=== PATIENT | female | born 1955 | race Caucasian/White ===

== ENCOUNTER 2019-06-08 16:55 | Inpatient (IN) | payer OTHER, BC ==
--- OUTSIDE RECORDS SUMMARY | 2019-06-08 16:58 | XMS REPORT ---
:1955 Author Organization eClinicalWorks Care Team Providers Name Role Phone Marcela Deng Provider Role Unavailable Allergies No Known Allergies Problems Problem Type Condition Code Onset Dates Condition Status Problem KEVAN (obstructive sleep apnea) G47.33 Active Problem Acquired hypothyroidism E03.9 Active Problem Elevated glucose level R73.09 Active Assessment Acquired hypothyroidism E03.9 Active Problem Essential hypertension I10 Active Medications Medication Code Code Instructions Start End Status Dosage System Date Date Levothyroxine [facility] 95621211453 100 MCG Orally Active 1 tablet Sodium Once a day on an empty stomach in the morning Results No Known Results Summary Purpose eClinicalWorks Submission
--- OUTSIDE RECORDS SUMMARY | 2019-06-08 16:58 | XMS REPORT ---
:1955 Author Organization [employer] Care Team Providers Name Role Phone Marcela Deng Provider Role Unavailable Allergies No Known Allergies Problems Problem Type Condition Code Onset Dates Condition Status Problem KEVAN (obstructive sleep apnea) G47.33 Active Problem Acquired hypothyroidism E03.9 Active Problem Elevated glucose level R73.09 Active Assessment Essential hypertension I10 Active Problem Essential hypertension I10 Active Medications Medication Code System Code Instructions Start Date End Date Status Dosage Lisinopril [facility] 61021509679 10 MG Orally Once Active 1 tablet a day Results No Known Results Summary Purpose eClinicalWorks Submission
--- OUTSIDE RECORDS SUMMARY | 2019-06-08 16:58 | XMS REPORT ---
:1955 Author Organization [employer]Works Care Team Providers Name Role Phone Marcela Deng Provider Role Unavailable Allergies, Adverse Reactions, Alerts Substance Reaction Event Type N.K.D.A. Info Not Available Non Drug Allergy Problems Problem Type Condition Code Onset Dates Condition Status Problem Acquired hypothyroidism E03.9 Active Problem Essential hypertension I10 Active Problem KEVAN (obstructive sleep apnea) G47.33 Active Assessment Essential hypertension I10 Active Assessment Encounter for immunization Z23 Active Assessment Acquired hypothyroidism E03.9 Active Medications Medication Code Code Instructions Start End Status Dosage System Date Date Levothyroxine [facility] 13337838446 100 MCG Orally Active 1 tablet Sodium Once a day on an empty stomach in the morning Lisinopril [facility] [id number] 10 MG Orally Active 1 tablet Once a day Results No Known Results Immunizations Vaccine Administration Date Prevnar 13 -Pneumonia Vaccine Aug 19, 2018 Summary Purpose eClinicalWorks Submission
--- OUTSIDE RECORDS SUMMARY | 2019-06-08 16:58 | XMS REPORT ---
:1955 Author Organization eClinicalWorks Care Team Providers Name Role Phone Marcela Deng Provider Role Unavailable Allergies No Known Allergies Problems Problem Type Condition Code Onset Dates Condition Status Problem KEVAN (obstructive sleep apnea) G47.33 Active Problem Acquired hypothyroidism E03.9 Active Problem Elevated glucose level R73.09 Active Assessment Elevated glucose level R73.09 Active Problem Essential hypertension I10 Active Medications No Known Medications Results No Known Results Summary Purpose eClinicalWorks Submission
--- OUTSIDE RECORDS SUMMARY | 2019-06-08 16:59 | XMS REPORT ---
:1955 Author Organization eClinicalWorks Care Team Providers Name Role Phone Marcela Deng Provider Role Unavailable Allergies No Known Allergies Problems Problem Type Condition Code Onset Dates Condition Status Problem KEVAN (obstructive sleep apnea) G47.33 Active Problem Acquired hypothyroidism E03.9 Active Problem Elevated glucose level R73.09 Active Assessment Acquired hypothyroidism E03.9 Active Assessment Elevated glucose level R73.09 Active Problem Essential hypertension I10 Active Medications No Known Medications Results No Known Results Summary Purpose eClinicalWorks Submission
--- OUTSIDE RECORDS SUMMARY | 2019-06-08 16:59 | XMS REPORT ---
:1955 Author Organization eClinicalWorks Care Team Providers Name Role Phone Marcela Deng Provider Role Unavailable Allergies No Known Allergies Problems Problem Type Condition Code Onset Dates Condition Status Problem KEVAN (obstructive sleep apnea) G47.33 Active Problem Acquired hypothyroidism E03.9 Active Problem Elevated glucose level R73.09 Active Problem Essential hypertension I10 Active Medications Medication Code Code Instructions Start End Status Dosage System Date Date Levothyroxine [facility] [id number] 100 MCG Orally Active 1 tablet Sodium Once a day on an empty stomach in the morning Results No Known Results Summary Purpose eClinicalWorks Submission
[2019-06-08 17:16] VITALS: BMI 36.0
[2019-06-08] MEDS: METFORMIN ER 500 MG TAB PO SCH (17:45)
[2019-06-08 18:27] LABS: Absolute Lymphocytes (CBC) 1.7 K/uL (0.7-4.9); Basophils % 0.3 % (0-1.3); Hematocrit 42.3 % (36.0-45.0); Lymphocytes % 15.4 % (15.3-44.8); MPV 8.3 fL (7.6-11.3); RBC Red Blood Cell Count 5.12 M/uL (3.86-4.86)
[2019-06-08 18:37] LABS: Bilirubin Total 0.5 mg/dL (0.2-1.0); Potassium 3.7 mmol/L (3.5-5.1); Protein, Total 7.7 g/dL (6.4-8.2)
--- NOTE | 2019-06-08 18:39 | P.HP ---
Certification for Inpatient Patient admitted to: Inpatient With expected LOS: >2 Midnights Patient will require the following post-hospital care: Home Health Services Practitioner: I am a practitioner with admitting privileges, knowledge of patient current condition, hospital course, and medical plan of care. Services: Services provided to patient in accordance with Admission requirements found in Title 42 Section 412.3 of the Code of Federal Regulations Patient History Date of Service: 06/08/19 Primary Care Provider: Shonda Deng Reason for admission: infection of the left hand History of Present Illness: Patient of Shonda Deng. Came to the office today. She had a spider bite on the left 5th proximal phalange. She went to urgent care and was started on doxycyline. Unfortunately the patient swelling and reddness worsened despite antibiotics. She had taken a picture from yesterday. Which proved that she had obviously worsened despite being on antibiotics. Due to this we decided to hospitalize the patient. Start on iv fluids an antibiotics. Have discussed with Dr. Pacheco, who will take her to OR tomorrow for debridgement and flushing of the site. Allergies No Known Allergies Allergy (Verified 06/08/19 17:15) - Past Medical/Surgical History Has patient received pneumonia vaccine in the past: Yes Diabetic: Yes -: diabetes -: htn -: hypothyroid -: sleep apnea -: facial surgery 1979 -: tubal 1979 -: breast reduction 2005 -: abdominal plasty 2005 - Social History Smoking Status: Never smoker Alcohol use: Yes CD- Drugs: No Caffeine use: Yes Place of Residence: Home Review of Systems 10-point ROS is otherwise unremarkable Musculoskeletal: Hand Pain (erthema and pain of the left 5th proximal phalange) Physical Examination - Vital Signs Temperature: 98.3 F Blood Pressure: 141/62 Pulse: 104 Respirations: 18 Pulse Ox (%): 95 - Physical Exam General: Alert, In no apparent distress HEENT: Atraumatic, PERRLA, Mucous membr. moist/pink, EOMI, Sclerae nonicteric Neck: Supple, 2+ carotid pulse no bruit, No LAD, Without JVD or thyroid abnormality Respiratory: Clear to auscultation bilaterally, Normal air movement Cardiovascular: Regular rate/rhythm, Normal S1 S2 Gastrointestinal: Normal bowel sounds, No tenderness Musculoskeletal: No tenderness Integumentary: No rashes, Tenderness/swelling, Erythema, Other (spider bite.2cmx 2cm with ulceration reddness and swelling. ) Neurological: Normal gait, Normal speech, Normal strength at 5/5 x4 extr, Normal tone, Normal affect Lymphatics: No axilla or inguinal lymphadenopathy - Studies Laboratory Data (last 24 hrs) 06/08/19 18:03: WBC 11.2 H, Hgb 13.9, Hct 42.3, Plt Count 265 Assessment and Plan - Problems (Diagnosis) (1) Finger infection Current Visit: Yes Status: Acute Plan: Will admit for iv antibiotics and surgical decompression. Order cultures. Start vanc and levaquin. Will consult Dr. Pacheco. Keep NPO after midnight. (2) Diabetes 1.5, managed as type 2 Current Visit: Yes Status: Acute Plan: will put her on accuchecks and sliding scales Discharge Plan: Home Plan to discharge in: 48 Hours - Advance Directives Does patient have a Living Will: Yes Does patient have a Durable POA for Healthcare: Yes - Code Status/Comfort Care Code Status Assessed: Yes Code Status: Full Code Physician Review: Patient Assessed, Agree with Above Assessment and Plan Critical Care: No Time Spent Managing Pts Care (In Minutes): 70
[2019-06-08] MEDS ORDERED: D50W 25 GM/50 ML SYRINGE IV PRN (18:42)
[2019-06-08] MEDS: NA CHLORIDE 0.9% 1,000 ML IV SCH (18:42)
[2019-06-08] MEDS ORDERED: GLUCAGON 1 MG/VIAL IM PRN (18:42)
[2019-06-08] MEDS: VANCOMYCIN 2 GM in NA CHLORIDE 0.9% 500 ML IV SCH (18:42)
[2019-06-08] MEDS: ENOXAPARIN 40 MG/0.4 ML SQ SCH (20:35)
[2019-06-08] MEDS: Levofloxacin 750mg IV 750 MG/150 ML BAG IV SCH (20:35)
[2019-06-08] MEDS: INSULIN -REGULAR HUMAN 50 UNIT/0.5 ML ML SQ SCH (20:36)
[2019-06-09] MEDS: VANCOMYCIN 2 GM in NA CHLORIDE 0.9% 500 ML IV SCH (05:07)
[2019-06-09] MEDS: LEVOTHYROXINE SOD 0.1 MG TAB PO SCH (05:08)
[2019-06-09 06:07] LABS: Urine Appearance CLEAR; Urine Bilirubin NEGATIVE (NEG); Urine Blood NEGATIVE (NEG); Urine Color YELLOW; Urine Glucose NEGATIVE (NEG); Urine Protein NEGATIVE (NEG); Urine Specific Gravity >=1.030 (1.005-1.030); Urine Urobilinogen 0.2 mg/dL (0.2-1.0)
[2019-06-09 06:08] LABS: Urine Microscopic Reflex NO UMIC
[2019-06-09 07:02] LABS: Absolute Lymphocytes (CBC) 1.7 K/uL (0.7-4.9); Basophils % 0.4 % (0-1.3); Hematocrit 39.7 % (36.0-45.0); Lymphocytes % 23.6 % (15.3-44.8); RBC Red Blood Cell Count 4.82 M/uL (3.86-4.86)
[2019-06-09] MEDS: NA CHLORIDE 0.9% 1,000 ML IV SCH (07:20)
[2019-06-09 07:23] LABS: Albumin 3.6 g/dL (3.4-5.0); Bilirubin Total 0.8 mg/dL (0.2-1.0); Potassium 3.8 mmol/L (3.5-5.1); Protein, Total 7.2 g/dL (6.4-8.2); Thyroid Stimulating Hormone 1.62 uIU/mL (0.360-3.740)
[2019-06-09] MEDS: PANTOPRAZOLE 40MG TABLET PO SCH (07:30)
[2019-06-09] MEDS ORDERED: PANTOPRAZOLE 40MG TABLET PO SCH (07:30)
[2019-06-09] MEDS: INSULIN -REGULAR HUMAN 50 UNIT/0.5 ML ML SQ SCH ×4 (07:30→21:00)
[2019-06-09] MEDS: LISINOPRIL 10 MG TAB PO SCH (08:09)
[2019-06-09] MEDS ORDERED: PROPOFOL 200 MG/20 ML VIAL IV ONE (08:47)
[2019-06-09] MEDS ORDERED: FENTANYL CITR 100 MCG/2 ML ONE (08:48)
[2019-06-09] MEDS ORDERED: MIDAZOLAM HCL 2 MG/2 ML INJ ONE (08:48)
[2019-06-09] MEDS ORDERED: LIDOCAINE 2% MPF 5 ML VIAL ONE (08:49)
[2019-06-09] MEDS: NA CHLORIDE 0.9% 1,000 ML ONE (08:53)
[2019-06-09] MEDS: MEPERIDINE HCL 25 MG/0.5 ML ONE ×2 (10:11→10:16)
--- NOTE | 2019-06-09 10:12 | OP ---
Surgeon: Holger Pacheco MD Preoperative Diagnosis: Infection of the left little finger. Postoperative Diagnosis: Infection of the left little finger. Procedure Performed: Excision of skin, subcutaneous tissue, approximately 1.5 x 0.5 cm. I and D abs cess. Anesthesia: General. Procedure In Detail: After satisfactory induction of general anesthesia, left arm was prepped with B etadine scrub, Betadine paint, dry sterile drapes applied in usual manner. Tourniquet was inflated t o 250 mmHg. Hand placed on a [place] table. Elliptical incision outlined over the dorsum of the lef t little finger slightly distal to the crease and extended proximally and distally. A sca lpel was used to incise the skin. Tissue was sent to Pathology. The proximal and distal flaps were elevated. The pus was excised, looks like MRSA, thick creamy white yellow pus. Culture was taken. A fter curetting and jet lavaged, tourniquet released. Electrocautery used for hemostasis. Wound pack ed with Betadine soaked 1/4-inch Nu Gauze and 2 inch Shay. The patient tolerated the procedure well and returned to Recovery. LEIDY/TANNER Voice ID: [id number] Report ID: [id number]
--- NOTE | 2019-06-09 11:38 | P.PN ---
Subjective Date of Service: 06/09/19 Primary Care Provider: Shonda Deng Chief Complaint: infection of the left hand Subjective: Improving (seen in pre op. Pt in good spirits) Review of Systems 10-point ROS is otherwise unremarkable Physical Examination - Vital Signs Temperature: 97.4 F Blood Pressure: 115/54 Pulse: 70 Respirations: 16 Pulse Ox (%): 96 - Physical Exam General: Alert, In no apparent distress HEENT: Atraumatic, PERRLA, EOMI Neck: Supple, JVD not distended Respiratory: Clear to auscultation bilaterally, Normal air movement Cardiovascular: Regular rate/rhythm, Normal S1 S2 Gastrointestinal: Normal bowel sounds, No tenderness Musculoskeletal: No tenderness Integumentary: No rashes Neurological: Normal speech, Normal tone, Normal affect Lymphatics: No axilla or inguinal lymphadenopathy - Studies Laboratory Data (last 24 hrs) 06/09/19 06:38: Sodium 144, Potassium 3.8, BUN 15, Creatinine 0.80, Glucose 119 H, Total Bilirubin 0.8, AST 11 L, ALT 22, Alkaline Phosphatase 104 06/09/19 06:38: WBC 7.4 D, Hgb 13.2, Hct 39.7, Plt Count 250 06/08/19 18:03: Sodium 145, Potassium 3.7, BUN 18, Creatinine 0.80, Glucose 111 H, Total Bilirubin 0.5, AST 11 L, ALT 21, Alkaline Phosphatase 120 H 06/08/19 18:03: WBC 11.2 H, Hgb 13.9, Hct 42.3, Plt Count 265 Assessment & Plan - Problems (Diagnosis) (1) Finger infection Current Visit: Yes Status: Acute Plan: Will admit for iv antibiotics and surgical decompression. Order cultures. Start vanc and levaquin. Will consult Dr. Pacheco. Keep NPO after midnight. (2) Diabetes 1.5, managed as type 2 Current Visit: Yes Status: Acute Plan: will put her on accuchecks and sliding scales (3) HTN (hypertension) Current Visit: Yes Status: Acute Plan: stable continue lisinopril Qualifiers: Hypertension type: essential hypertension Qualified Code(s): I10 - Essential (primary) hypertension (4) Hypothyroidism Current Visit: Yes Status: Acute Plan: stable continue levothyroxine. check tsh Qualifiers: Hypothyroidism type: acquired Qualified Code(s): E03.9 - Hypothyroidism, unspecified Discharge Plan: Home - Code Status/Comfort Care Code Status Assessed: No Physician Review: Patient Assessed, Agree with Above Assessment and Plan Critical Care: No Time Spent Managing Pts Care (In Minutes): 20
[2019-06-09] MEDS: ENOXAPARIN 40 MG/0.4 ML SQ SCH (17:51)
[2019-06-09] MEDS: METFORMIN ER 500 MG TAB PO SCH (17:51)
[2019-06-09] MEDS: Levofloxacin 750mg IV 750 MG/150 ML BAG IV SCH (17:52)
[2019-06-10] MEDS ORDERED: VANCOMYCIN 2 GM in NA CHLORIDE 0.9% 500 ML IV SCH ×2
[2019-06-10] MEDS: CODEINE 30MG/APAP 300MG TAB PO PRN ×4 (00:26→23:05)
[2019-06-10] MEDS: NA CHLORIDE 0.9% 1,000 ML IV SCH ×3 (00:28→23:20)
[2019-06-10 06:32] LABS: Absolute Lymphocytes (CBC) 2.1 K/uL (0.7-4.9); Basophils % 0.4 % (0-1.3); Hematocrit 36.8 % (36.0-45.0); Lymphocytes % 30.4 % (15.3-44.8); MPV 7.9 fL (7.6-11.3); RBC Red Blood Cell Count 4.44 M/uL (3.86-4.86)
[2019-06-10 06:46] LABS: Albumin 3.3 g/dL (3.4-5.0); Bilirubin Total 0.6 mg/dL (0.2-1.0); Potassium 3.9 mmol/L (3.5-5.1); Protein, Total 6.6 g/dL (6.4-8.2)
[2019-06-10] MEDS: LEVOTHYROXINE SOD 0.1 MG TAB PO SCH (06:55)
[2019-06-10] MEDS ORDERED: ALPRAZOLAM 1 MG TABLET PO ONE (07:13)
[2019-06-10] MEDS: INSULIN -REGULAR HUMAN 50 UNIT/0.5 ML ML SQ SCH ×4 (07:30→21:00)
[2019-06-10] MEDS: LISINOPRIL 10 MG TAB PO SCH (08:45)
[2019-06-10] MEDS: PANTOPRAZOLE 40MG TABLET PO SCH (08:45)
[2019-06-10] MEDS ORDERED: HYDRALAZINE HCL 20 MG/ML VIAL IV PRN (10:12)
[2019-06-10] MEDS: ACETAMINOPHEN 325 MG TABLET PO SCH (16:00)
[2019-06-10] MEDS: ENOXAPARIN 40 MG/0.4 ML SQ SCH (16:34)
[2019-06-10] MEDS: Levofloxacin 750mg IV 750 MG/150 ML BAG IV SCH (16:35)
[2019-06-10] MEDS: METFORMIN ER 500 MG TAB PO SCH (16:35)
[2019-06-10] MEDS: VANCOMYCIN 2.25 GM in NA CHLORIDE 0.9% 500 ML IV SCH (19:59)
[2019-06-11] MEDS: LEVOTHYROXINE SOD 0.1 MG TAB PO SCH (06:05)
[2019-06-11 06:18] LABS: Absolute Lymphocytes (CBC) 1.9 K/uL (0.7-4.9); Basophils % 0.6 % (0-1.3); Hematocrit 39.1 % (36.0-45.0); Lymphocytes % 26.9 % (15.3-44.8); MPV 7.7 fL (7.6-11.3); RBC Red Blood Cell Count 4.73 M/uL (3.86-4.86)
[2019-06-11 06:30] LABS: Albumin 3.6 g/dL (3.4-5.0); Bilirubin Total 0.7 mg/dL (0.2-1.0); Protein, Total 7.2 g/dL (6.4-8.2)
[2019-06-11] MEDS: INSULIN -REGULAR HUMAN 50 UNIT/0.5 ML ML SQ SCH ×4 (07:30→21:00)
[2019-06-11] MEDS: PANTOPRAZOLE 40MG TABLET PO SCH (08:11)
[2019-06-11] MEDS: LISINOPRIL 20 MG TAB PO SCH (08:11)
[2019-06-11] MEDS: ACETAMINOPHEN 325 MG TABLET PO SCH ×3 (08:14→16:00)
--- NOTE | 2019-06-11 11:16 | P.PN ---
Subjective Date of Service: 06/10/19 Primary Care Provider: Shonda Deng Chief Complaint: infection of the left hand Review of Systems 10-point ROS is otherwise unremarkable Physical Examination - Vital Signs Temperature: 97 F Blood Pressure: 148/62 Pulse: 68 Respirations: 20 Pulse Ox (%): 97 - Physical Exam General: Alert, In no apparent distress HEENT: Atraumatic, PERRLA, EOMI Neck: Supple, JVD not distended Respiratory: Clear to auscultation bilaterally, Normal air movement Cardiovascular: Regular rate/rhythm, Normal S1 S2 Gastrointestinal: Normal bowel sounds, No tenderness Musculoskeletal: No tenderness Integumentary: No rashes Neurological: Normal speech, Normal tone, Normal affect Lymphatics: No axilla or inguinal lymphadenopathy - Studies Laboratory Data (last 24 hrs) 06/11/19 06:04: Sodium 142, Potassium 4.0, BUN 12, Creatinine 0.86, Glucose 116 H, Total Bilirubin 0.7, AST 15, ALT 21, Alkaline Phosphatase 108 06/11/19 06:04: WBC 6.9, Hgb 12.8, Hct 39.1, Plt Count 259 Microbiology Data (last 24 hrs): 06/09/19 09:22 Wound - Left Finger Gram Stain - Final 06/09/19 09:22 Wound - Left Finger Culture & Sensitivity - Final Staph Aureus Assessment & Plan - Problems (Diagnosis) (1) Finger infection Current Visit: Yes Status: Acute Plan: post op. Will continue vanc. Gm +ve coagulase postive cocci. Will await antibiotigram. scheduled dosages of antibiotics. (2) Diabetes 1.5, managed as type 2 Current Visit: Yes Status: Acute Plan: will put her on accuchecks and sliding scales (3) HTN (hypertension) Current Visit: Yes Status: Acute Plan: stable continue lisinopril Qualifiers: Hypertension type: essential hypertension Qualified Code(s): I10 - Essential (primary) hypertension (4) Hypothyroidism Current Visit: Yes Status: Acute Plan: stable continue levothyroxine. check tsh Qualifiers: Hypothyroidism type: acquired Qualified Code(s): E03.9 - Hypothyroidism, unspecified Discharge Plan: Home Plan to discharge in: 48 Hours - Code Status/Comfort Care Code Status Assessed: No Physician Review: Patient Assessed, Agree with Above Assessment and Plan Critical Care: No Time Spent Managing Pts Care (In Minutes): 20
--- NOTE | 2019-06-11 11:18 | P.PN ---
Subjective Date of Service: 06/11/19 Primary Care Provider: Shonda Deng Chief Complaint: infection of the left hand Subjective: No new changes Review of Systems 10-point ROS is otherwise unremarkable Physical Examination - Vital Signs Temperature: 97 F Blood Pressure: 148/62 Pulse: 68 Respirations: 20 Pulse Ox (%): 97 - Physical Exam General: Alert, In no apparent distress HEENT: Atraumatic, PERRLA, EOMI Neck: Supple, JVD not distended Respiratory: Clear to auscultation bilaterally, Normal air movement Cardiovascular: Regular rate/rhythm, Normal S1 S2 Gastrointestinal: Normal bowel sounds, No tenderness Musculoskeletal: No tenderness Integumentary: No rashes Neurological: Normal speech, Normal tone, Normal affect Lymphatics: No axilla or inguinal lymphadenopathy - Studies Laboratory Data (last 24 hrs) 06/11/19 06:04: Sodium 142, Potassium 4.0, BUN 12, Creatinine 0.86, Glucose 116 H, Total Bilirubin 0.7, AST 15, ALT 21, Alkaline Phosphatase 108 06/11/19 06:04: WBC 6.9, Hgb 12.8, Hct 39.1, Plt Count 259 Microbiology Data (last 24 hrs): 06/09/19 09:22 Wound - Left Finger Gram Stain - Final 06/09/19 09:22 Wound - Left Finger Culture & Sensitivity - Final Staph Aureus Assessment & Plan - Problems (Diagnosis) (1) Finger infection Current Visit: Yes Status: Acute Plan: post op. Will continue vanc. Gm +ve coagulase postive cocci. Will await antibiotigram. scheduled dosages of tylenol to control pain and anxiety (2) Diabetes 1.5, managed as type 2 Current Visit: Yes Status: Acute Plan: will put her on accuchecks and sliding scales (3) HTN (hypertension) Current Visit: Yes Status: Acute Plan: stable continue lisinopril Qualifiers: Hypertension type: essential hypertension Qualified Code(s): I10 - Essential (primary) hypertension (4) Hypothyroidism Current Visit: Yes Status: Acute Plan: stable continue levothyroxine. check tsh Qualifiers: Hypothyroidism type: acquired Qualified Code(s): E03.9 - Hypothyroidism, unspecified Discharge Plan: Home Plan to discharge in: 48 Hours - Code Status/Comfort Care Code Status Assessed: No Physician Review: Patient Assessed, Agree with Above Assessment and Plan Critical Care: No Time Spent Managing Pts Care (In Minutes): 20
[2019-06-11] MEDS: VANCOMYCIN 2.25 GM in NA CHLORIDE 0.9% 500 ML IV SCH (12:32)
[2019-06-11] MEDS ORDERED: NA CHLORIDE 0.9% 250 ML ONE (12:53)
[2019-06-11] MEDS: METFORMIN ER 500 MG TAB PO SCH (16:54)
[2019-06-11] MEDS: ENOXAPARIN 40 MG/0.4 ML SQ SCH (16:54)
[2019-06-11] MEDS: Levofloxacin 750mg IV 750 MG/150 ML BAG IV SCH (18:41)
[2019-06-12] MEDS: VANCOMYCIN 2.25 GM in NA CHLORIDE 0.9% 500 ML IV SCH (06:10)
[2019-06-12] MEDS: LEVOTHYROXINE SOD 0.1 MG TAB PO SCH (06:11)
[2019-06-12] MEDS: INSULIN -REGULAR HUMAN 50 UNIT/0.5 ML ML SQ SCH ×4 (07:30→21:00)
[2019-06-12] MEDS: PANTOPRAZOLE 40MG TABLET PO SCH (09:03)
[2019-06-12] MEDS: LISINOPRIL 20 MG TAB PO SCH (09:04)
[2019-06-12] MEDS: ACETAMINOPHEN 325 MG TABLET PO SCH ×3 (09:04→17:01)
--- NOTE | 2019-06-12 09:17 | P.PN ---
Subjective Date of Service: 06/12/19 Primary Care Provider: Shonda Deng Chief Complaint: infection of the left hand Subjective: No new changes Review of Systems 10-point ROS is otherwise unremarkable Physical Examination - Vital Signs Temperature: 97.4 F Blood Pressure: 137/63 Pulse: 64 Respirations: 16 Pulse Ox (%): 99 - Physical Exam General: Alert, In no apparent distress HEENT: Atraumatic, PERRLA, EOMI Neck: Supple, JVD not distended Respiratory: Clear to auscultation bilaterally, Normal air movement Cardiovascular: Regular rate/rhythm, Normal S1 S2 Gastrointestinal: Normal bowel sounds, No tenderness Musculoskeletal: No tenderness Integumentary: No rashes, Other (left hand is bandaged. Pt took pictures which show decreased ) Neurological: Normal speech, Normal tone, Normal affect Lymphatics: No axilla or inguinal lymphadenopathy - Studies Microbiology Data (last 24 hrs): 06/09/19 09:22 Wound - Left Finger Gram Stain - Final 06/09/19 09:22 Wound - Left Finger Culture & Sensitivity - Final Staph Aureus Assessment & Plan - Problems (Diagnosis) (1) Finger infection Current Visit: Yes Status: Acute Plan: post op. Will continue vanc. Gm +ve coagulase postive cocci. Will await antibiotigram. scheduled dosages of tylenol to control pain and anxiety discussed with Dr. Pacheco this morning. Plan to close the wound tomorrow. Will keep her NPO after midnight. (2) Diabetes 1.5, managed as type 2 Current Visit: Yes Status: Acute Plan: will put her on accuchecks and sliding scales (3) HTN (hypertension) Current Visit: Yes Status: Acute Plan: stable continue lisinopril Qualifiers: Hypertension type: essential hypertension Qualified Code(s): I10 - Essential (primary) hypertension (4) Hypothyroidism Current Visit: Yes Status: Acute Plan: stable continue levothyroxine. check tsh Qualifiers: Hypothyroidism type: acquired Qualified Code(s): E03.9 - Hypothyroidism, unspecified Discharge Plan: Home Plan to discharge in: 24 Hours - Code Status/Comfort Care Code Status Assessed: No Physician Review: Patient Assessed, Agree with Above Assessment and Plan Critical Care: No Time Spent Managing Pts Care (In Minutes): 25
--- NOTE | 2019-06-12 16:19 | PN ---
The patient is still in-house. We are planning surgery tomorrow. We will debride and close the woun d, should be n.p.o. at midnight, probably will on the edges. LEIDY/TANNER Voice ID: [id number] Report ID: [id number]
[2019-06-12] MEDS: ENOXAPARIN 40 MG/0.4 ML SQ SCH (17:00)
[2019-06-12] MEDS: Levofloxacin 750mg IV 750 MG/150 ML BAG IV SCH (17:01)
[2019-06-12] MEDS: METFORMIN ER 500 MG TAB PO SCH (17:01)
[2019-06-13] MEDS: CODEINE 30MG/APAP 300MG TAB PO PRN (00:10)
[2019-06-13] MEDS: LEVOTHYROXINE SOD 0.1 MG TAB PO SCH (05:42)
[2019-06-13] MEDS: PANTOPRAZOLE 40MG TABLET PO SCH (07:30)
[2019-06-13] MEDS: INSULIN -REGULAR HUMAN 50 UNIT/0.5 ML ML SQ SCH ×2 (07:30→10:41)
[2019-06-13] MEDS: ACETAMINOPHEN 325 MG TABLET PO SCH ×2 (08:00)
[2019-06-13] MEDS ORDERED: MIDAZOLAM HCL 2 MG/2 ML INJ ONE (08:14)
[2019-06-13] MEDS ORDERED: FENTANYL CITR 100 MCG/2 ML ONE (08:14)
[2019-06-13] MEDS ORDERED: LIDOCAINE 2% MPF 5 ML VIAL ONE (08:14)
[2019-06-13] MEDS ORDERED: PROPOFOL 200 MG/20 ML VIAL IV ONE (08:14)
[2019-06-13] MEDS ORDERED: NA CHLORIDE 0.9% 1,000 ML ONE (08:52)
[2019-06-13] MEDS: LISINOPRIL 20 MG TAB PO SCH (09:00)
[2019-06-13] MEDS ORDERED: ONDANSETRON 4 MG/2 ML VIAL ONE (09:37)
[2019-06-13] MEDS ORDERED: GLYCOPYRROLATE 0.2 MG/ML SYR ONE (09:40)
[2019-06-13] MEDS: HYDROMORPHONE HCL 1 MG/ML INJ ONE ×2 (09:48→09:53)
[2019-06-13 10:05] VITALS: O2SAT 96
--- NOTE | 2019-06-13 11:43 | P.DS ---
Admission Date: 06/08/19 Discharge Date: 06/13/19 Primary Care Provider: Shonda Deng Disposition: ROUTINE DISCHARGE Discharge Condition: GOOD Reason for Admission: infection of the left hand - Problems (1) Finger infection Current Visit: Yes Status: Acute (2) Diabetes 1.5, managed as type 2 Current Visit: Yes Status: Acute (3) HTN (hypertension) Current Visit: Yes Status: Acute Qualifiers: Hypertension type: essential hypertension Qualified Code(s): I10 - Essential (primary) hypertension (4) Hypothyroidism Current Visit: Yes Status: Acute Qualifiers: Hypothyroidism type: acquired Qualified Code(s): E03.9 - Hypothyroidism, unspecified Brief History of Present Illness: Patient of Shonda Deng. Came to the office today. She had a spider bite on the left 5th proximal phalange. She went to urgent care and was started on doxycyline. Unfortunately the patient swelling and reddness worsened despite antibiotics. She had taken a picture from yesterday. Which proved that she had obviously worsened despite being on antibiotics. Due to this we decided to hospitalize the patient. Start on iv fluids an antibiotics. Have discussed with Dr. Pacheco, who will take her to OR tomorrow for debridgement and flushing of the site. Hospital Course: Pt seen in pre-op. Discussed care with Dr. Pacheco. Who is taking her for revision of the surgery this morning. Believes she can go home after the surgery. She has follow up with him in the office tomorrow. The patient had one positive wound swab. Will send her home on levaquin, which it is sensitive too. Will Have her follow up with Stephenie Deng in a week. Will see if PT is required. Vital Signs/Physical Exam: Temp Pulse Resp BP Pulse Ox 98.5 F 69 16 106/59 L 97 06/13/19 10:12 06/13/19 10:12 06/13/19 10:12 06/13/19 10:12 06/13/19 08:00 General: Alert, In no apparent distress HEENT: Atraumatic, PERRLA, EOMI Neck: Supple, JVD not distended Respiratory: Clear to auscultation bilaterally, Normal air movement Cardiovascular: Regular rate/rhythm, Normal S1 S2 Gastrointestinal: Normal bowel sounds, No tenderness Musculoskeletal: No tenderness Integumentary: No rashes Neurological: Normal speech, Normal tone, Normal affect Lymphatics: No axilla or inguinal lymphadenopathy Laboratory Data at Discharge: WBC 6.9 K/uL (4.3-10.9) 06/11/19 06:04 Hgb 12.8 g/dL (12.0-15.0) 06/11/19 06:04 Hct 39.1 % (36.0-45.0) 06/11/19 06:04 Plt Count 259 K/uL (152-406) 06/11/19 06:04 Sodium 142 mmol/L (136-145) 06/11/19 06:04 Potassium 4.0 mmol/L (3.5-5.1) 06/11/19 06:04 BUN 12 mg/dL (7-18) 06/11/19 06:04 Creatinine 0.86 mg/dL (0.55-1.3) 06/11/19 06:04 Glucose 116 mg/dL (74-106) H 06/11/19 06:04 Total Bilirubin 0.7 mg/dL (0.2-1.0) 06/11/19 06:04 AST 15 U/L (15-37) 06/11/19 06:04 ALT 21 U/L (12-78) 06/11/19 06:04 Alkaline Phosphatase 108 U/L (45-117) 06/11/19 06:04 Home Medications: Levothyroxine Sodium 1 tab PO DAILY 06/08/19 Lisinopril 1 tab PO DAILY 06/08/19 Metformin HCl [Metformin HCl ER] 1 tab PO BEDTIME 06/08/19 Levofloxacin [Levaquin] 500 mg PO DAILY 10 Days #10 tablet 06/13/19 New Medications: Levofloxacin [Levaquin] 500 mg PO DAILY 10 Days #10 tablet Followup: Stephenie Deng NP [Primary Care Provider] - 1 Week Holger Pacheco MD [ACTIVE - CAN ADMIT] - 1 Day Time spent managing pt's care (in minutes): 35
[2019-06-13 14:22] VITALS: BP 116/57; TEMP 98.2
--- NOTE | 2019-06-14 08:21 | OP ---
Surgeon: Holger Pacheco MD Preoperative Diagnosis: Open wound of the left little finger. Postoperative Diagnosis: Open wound of the left little finger. Procedure Performed: Debridement of skin and subcutaneous tissue, flap closure. Anesthesia: General. Procedure In Detail: After satisfactory induction of general anesthesia, left arm and hand were prep ped with Betadine scrub, Betadine paint, dry sterile drapes applied in usual manner. Arm was elevate d, exsanguinated with an Esmarch, tourniquet was inflated to 250 mmHg. Hand was placed on the [place] k table. Scalpel and tenotomy scissors were used to debride skin and subcu tissue. A curette was us ed in the depth of the wound. Jet lavage was performed with 3 L of Betadine solution. Tourniquet wa s released and the wound closed with horizontal mattress simple sutures of the 4-0 Prolene. Dressing s consisted of Xeroform and 2-inch Shay. Patient tolerated procedure well and returned to Recovery. LEIDY/TANNER Voice ID: [id number] Report ID: [id number]
== END 2019-06-13 12:39 | disposition home or self-care (01) | DRG 906 ==
LOC: 2ND 16:55
PROVIDERS: ADMIT Internal Medicine; ATTEND Internal Medicine
PROC: 0JBK0ZZ Excision of Left Hand Subcutaneous Tissue and Fascia, Open Approach (ICD-10-PCS; 2019-06-09)
PROC: 0J9K0ZZ Drainage of Left Hand Subcutaneous Tissue and Fascia, Open Approach (ICD-10-PCS; principal; 2019-06-09 08:45)
PROC: 0JDK0ZZ Extraction of Left Hand Subcutaneous Tissue and Fascia, Open Approach (ICD-10-PCS; 2019-06-13)
DX: T63.301A Toxic effect of unspecified spider venom, accidental (unintentional), initial encounter (principal); L08.9 Local infection of the skin and subcutaneous tissue, unspecified; B95.61 Methicillin susceptible Staphylococcus aureus infection as the cause of diseases classified elsewhere; E13.9 Other specified diabetes mellitus without complications; I10 Essential (primary) hypertension; E03.9 Hypothyroidism, unspecified; G47.30 Sleep apnea, unspecified
CPT/HCPCS: 36415; 80053; 80202; 81003; 82962; 84443; 85025; 87040; 87070; 87075; 87077; 87186; 87205; 88304; 88305; J0360; J1170; J1650; J2175; J2250; J2405; J2704; J3010; J7030

== ENCOUNTER 2021-09-18 13:12 | Day surgery (SDC) | payer OTHER ==
[2021-09-16 15:47] LABS: Absolute Lymphocytes (CBC) 2.3 K/uL (0.7-4.9); Basophils % 0.5 % (0-1.3); Hematocrit 43.8 % (36.0-45.0); Lymphocytes % 23.1 % (15.3-44.8); MPV 7.5 fL (7.6-11.3); RBC Red Blood Cell Count 5.29 M/uL (3.86-4.86)
[2021-09-16 15:51] LABS: Protime INR 1.03
--- NOTE | 2021-09-16 15:56 | RAD REPORT ---
EXAM DESCRIPTION: RAD - Chest Pa And Lat (2 Views) - 09/16/2021 3:47 pm CLINICAL HISTORY: Pre Op pending heart cath Chest pain. COMPARISON: CHEST SINGLE VIEW dated 09/01/2009 FINDINGS: The lungs are mildly hyperexpanded but clear. The heart is upper limit of normal in size. No displaced fractures.
[2021-09-16 17:04] LABS: Potassium 3.9 mmol/L (3.5-5.1)
--- NOTE | 2021-09-17 13:13 | EKG ---
Test Date: 2021-09-16 Test Time: 14:22:10 Sample Distributor: [facility] MEASUREMENT RESULTS: Intervals: Rate: 78 NV: 134 QRSD: 100 QT: 358 QTc: 408 [place]: P: 49 NV: 134 QRS: 5 T: 19 INTERPRETIVE STATEMENTS: Normal sinus rhythm Low voltage QRS Cannot rule out Anterior infarct, age undetermined Abnormal ECG No previous ECG available for comparison Electronically Signed On 09-17-21 13:10:34 CDT by Rocael Bender
[~2021-09-18 13:12] MED LIST: HEPA 1000U/500MLS 2,000 UNIT/1,000 ML BAG IV ONE; LIDOCAINE 1% 20 ML MDV ONE
[2021-09-18] MEDS ORDERED: NA CHLORIDE 0.9% 500 ML ONE (13:16)
[2021-09-18 13:56] VITALS: TEMP 97.8; O2SAT 98
[2021-09-18] MEDS ORDERED: ATROPINE SULF 1 MG/10 ML SYR IV ONE (15:18)
[2021-09-18] MEDS ORDERED: MIDAZOLAM HCL 2 MG/2 ML INJ ONE (15:18)
[2021-09-18] MEDS ORDERED: FENTANYL CITR 100 MCG/2 ML ONE (15:18)
[2021-09-18] MEDS ORDERED: HEPARIN 5000 UNIT/ML 1 ML VIAL ONE (15:18)
[2021-09-18] MEDS ORDERED: VERAPAMIL HCL 10 MG/4 ML VIAL IV ONE (15:18)
[2021-09-18 17:50] VITALS: BP 104/58
--- NOTE | 2021-09-18 23:25 | OP ---
Date of Procedure: 09/18/2021 Surgeon: MARIA DEL CARMEN PLASCENCIA Procedure Performed: Selective coronary angiogram. Indication: Abnormal stress test. Access: Right radial artery 6-Indonesian closed with TR band. Complications: None. Bleeding: Less than 10 mL. Description Of Procedure: After risks, benefits, and alternatives were explained, the patient agreed to proceed and signed informed consent. The patient was brought in the cardiac catheterization labo banner, prepped and draped in usual sterile fashion. Then, we accessed the radial artery using pedia tric micropuncture kit and placed a 6-Indonesian slender sheath, and we took a 5-Indonesian [place] 4.0 cathete r into the aortic root, engaged left main and left coronary artery, took standard views. Removed the catheter and the sheath was removed and placed TR band with good hemostasis. Findings: 1.Left main: Large and normal. 2.LAD: Moderate-sized vessel, normal. All diagonal branches are normal. 3.Left circumflex: Moderate size and normal. 4.RCA: Dominant circulation and normal. Conclusion: Normal coronary arteries. Plan: Medical management. /TANNER Voice ID: [id number] Report ID: [id number]
== END 2021-09-18 17:50 | disposition home or self-care (01) ==
LOC: CCL 13:12
PROVIDERS: ATTEND Internal Medicine
DX: R94.39 Abnormal result of other cardiovascular function study (principal); I10 Essential (primary) hypertension; E78.5 Hyperlipidemia, unspecified; E11.9 Type 2 diabetes mellitus without complications; Z20.822 Contact with and (suspected) exposure to COVID-19
CPT/HCPCS: 93005; 85025; 80048; 36415; 85610; 82947; 85730; 71046; 93454; 93458; U0003; C1893; J1644 ×2; J2250; J3010; J7040; 93460